=== PATIENT | female | born 1960 ===

== ENCOUNTER 2022-01-23 12:10 | Emergency (ER) | payer BC, SELFPAY ==
[2022-01-23] VITALS (7 sets, daily range): BP systolic 160–167; BP diastolic 79–93; PULSE 70–72; RESP 14; TEMP 36.8; O2SAT 97–100
--- NOTE | 2022-01-23 12:53 | ED.HA ---
HPI - Headache General Chief Complaint: Headache Stated Complaint: migraine x 2 days Time Seen by Provider: 01/23/22 12:47 History of Present Illness HPI Narrative: 61-year-old female presents to the emergency room today for complaints of a migraine headache that started 2 days ago. She has taken 2 doses of her prescription triptan medication at home today with no relief. It was not as bad on Wednesday and yesterday. The today it is less tolerable. She has a history of migraines and reports that this feels similar to previous migraines. She reports that it is bilateral frontal and occipital but feels it more on the left. She describes it as a throbbing pain. She has sensitivity to light. Denies having any nausea or vomiting. No fever or chills. She does report having some blurred vision in her right eye which she has had previously with other migraines. Related Data Allergies Allergy/AdvReac Type Severity Reaction Status Date / Time codeine Allergy Mild Rash Verified 01/23/22 12:11 Review of Systems Review of Systems: CONSTITUTIONAL: Denies fever, chills, or sweats. EYES: as per HPI ENT: Denies rhinorrhea, congestion, sore throat, or otalgia. CARDIOVASCULAR: Denies chest pain, palpitations, or edema. RESPIRATORY: Denies cough or dyspnea. GASTROINTESTINAL: Denies abdominal pain, nausea, vomiting, or diarrhea. GENITOURINARY: Denies dysuria or hematuria. SKIN: Denies rash or itching. MUSCULOSKELETAL: Denies back pain, joint pain, or myalgia. NEUROLOGIC: as per HPI PSYCHIATRIC: Denies anxiety or depression. Exam Narrative: GENERAL: Well-appearing, well-nourished, and in no acute distress. HEAD: Normocephalic, atraumatic. EYES: PERRLA and EOMI. NECK: Supple. No adenopathy or masses. No carotid bruits or JVD CHEST: Clear to auscultation. No respiratory distress. No wheezes rales or rhonchi HEART: Regular rate and rhythm. No murmur heard. Normal peripheral pulses. ABDOMEN: Soft, nontender, nondistended, normal active bowel sounds. EXTREMITIES: Normal range of motion. No edema. SKIN: Warm, dry, no rash. NEURO: No focal deficits. Alert and oriented x3. PSYCH: Normal mood and affect. Course Reevaluation(s) Reevaluation #1: Pt reports that headache is improved and feels ready to go home. Date: 01/23/22 Time: 13:45 Vital Signs Vital signs: Vital Signs Temperature 36.8 C 01/23/22 12:13 Pulse Rate 72 01/23/22 12:13 Respiratory Rate 14 01/23/22 12:13 Blood Pressure 167/93 H 01/23/22 12:13 Pulse Oximetry 100 01/23/22 12:13 Oxygen Delivery Room Air 01/23/22 12:13 Temperature 36.8 C 01/23/22 12:13 Pulse Rate 72 01/23/22 12:13 Respiratory Rate 14 01/23/22 12:13 Blood Pressure 167/93 H 01/23/22 12:13 Pulse Oximetry 100 01/23/22 12:13 Oxygen Delivery Room Air 01/23/22 12:13 MDM - Headache Differential Diagnosis Differential diagnosis: Likely migraine, tension headache, headache and sinusitis Discharge Plan Discharge Clinical Impression: Migraine Qualifiers: Migraine type: with aura Status migrainosus presence: without status migrainosus Intractability: not intractable Qualified Code(s): G43.109 - Migraine with aura, not intractable, without status migrainosus Patient Disposition: Home, Self-Care Condition: Stable Instructions: Antibiotic Form, Migraine Headache (ED) Additional Instructions: Go home and rest today. Make sure and drink plenty of oral fluids. Continue your prescribed medications as directed. Follow-up with your primary care provider in 2 to 3 days for recheck. Follow-up/Referrals: Davion,MD Iglesia [Primary Care Provider] - (in 2-3 days for recheck) Time of Disposition: 14:15
[2022-01-23] MEDS: SODIUM CHLORIDE 0.9% IV 1,000 ML 999 ML IV CONT (13:12)
[2022-01-23] MEDS: METOCLOPRAMIDE HCL INJ 10 MG/2 ML VIAL IV PUSH (13:13)
[2022-01-23] MEDS: diphenhydrAMINE HCl INJ 50 MG/ML VIAL IV PUSH (13:13)
[2022-01-23] MEDS: KETOROLAC 30 MG/ML VIAL (*BKC) IV PUSH (13:13)
== END 2022-01-23 14:32 | disposition home or self-care (01) ==
PROVIDERS: Emergency Provider Nurse Practitioner Family; PCP Internal Medicine
DX: G43.109 Migraine with aura, not intractable, without status migrainosus (principal)
CPT/HCPCS: 96361; 96374; 96375; 99284; J1200; J1885; J2765; J7030

== ENCOUNTER → 2022-03-06 07:14 | Outpatient (CLI) | payer BC, SELFPAY ==
--- NOTE | ~2022-03-06 | MR_ITS ---
EXAMINATION: MR brain/brain stem wo con DATE: 03/06/2022 07:54 INDICATION: Headache. TECHNIQUE: Magnetic resonance imaging (MRI) of the brain and brainstem was performed without intraven ous contrast. COMPARISON: Head CT 04/11/2015 FINDINGS: There is no intracranial hemorrhage, acute infarction, or abnormal intracranial mass lesion . There are scattered areas of nonspecific increased T2-weighted signal intensity in the cerebral whi te matter, which is within normal limits for the patient's age. The ventricles are normal in size. Th ere is mucosal thickening in left frontal sinus. The orbits are normal. The mastoid air cells are nor mal. IMPRESSION: 1. Normal aging brain. Reviewed, dictated and finalized at location A. IMPRESSION: 1. Normal aging brain.
--- NOTE | ~2022-03-06 | MR_ITS ---
EXAMINATION: MRA brain wo con DATE: 03/06/2022 07:46 INDICATION: Headache. TECHNIQUE: Magnetic resonance angiography (MRA) of the brain was performed without intravenous contra st with T1-weighted SPGR by the 3D hjcd-on-teazsd technique. Maximum intensity projection 3D-reconstr uctions were obtained. COMPARISON: Head CT 04/11/2015, brain MRI 03/06/2022 FINDINGS: Left vertebral artery is dominant. There is no significant stenosis of basilar artery or the posterio r cerebral arteries. The posterior communicating arteries are normal. There is no significant stenosi s of the intracranial internal carotid arteries or anterior or middle cerebral arteries. Anterior com municating artery is normal. There is no aneurysm. IMPRESSION: 1. Normal brain MRA. Reviewed, dictated and finalized at location A. IMPRESSION: 1. Normal brain MRA.
== END ==
PROVIDERS: PCP Internal Medicine; Visit Provider Internal Medicine
DX: R51.9 Headache, unspecified (principal)
CPT/HCPCS: 70544; 70551

== ENCOUNTER 2023-10-10 05:47 | Emergency (ER) | payer BC, SELFPAY ==
--- NOTE | ~2023-10-10 | CT_ITS ---
EXAMINATION: CT abdomen pelvis wo con DATE: 10/10/2023 07:24 INDICATION: Flank pain TECHNIQUE: Computed tomography (CT) of the abdomen and pelvis was performed without intravenous contr ast. The dose-length product was 737.81 mGy-cm. Automated exposure control and iterative reconstructi on technique were employed. COMPARISON: None. FINDINGS: There is dependent atelectasis. There is lingular consolidation which may represent atelect asis or less likely pneumonia. Heart size normal. No significant pleural or pericardial effusion. The re are cholecystectomy clips. There is atherosclerosis of the aorta without aneurysm. There is a 5 mm proximal left ureteral stone with moderate hydronephrosis. There is a 2 mm nonobstructing left renal stone. There is left perinephric edema. Nonobstructive bowel gas pattern. The liver, spleen, pancreas, adrenal glands and right kidney are un remarkable. Colonic diverticulosis without evidence for diverticulitis. No free air or free fluid. No significant vascular abnormality. No lymphadenopathy. 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 IMPRESSION: 1. Left proximal ureteral stone measuring 5 mm with moderate hydronephrosis. 2: Left nephrolithiasis. Reviewed, dictated and finalized at location B.
[2023-10-10 06:04] LABS: Appearance Urine Clear (Clear); Bacteria Urine None Seen /hpf; Bilirubin Urine Negative (Negative); Blood Urine 3+ (Negative); Color Urine Yellow (Yellow); Glucose Urine UA Negative (Negative); Ketones Urine Negative (Negative); Leukocyte Esterase Ur 1+ LEU/UL (Negative); Nitrate Urine Negative (Negative); Non Pathogenic Casts 0-2; Protein Urine Negative (Negative); Specific Grav Ur 1.006 (1.001-1.035); Squamous Epithelial Cell Urine Occasional /hpf (Few); Urobilinogen Urine 0.2 mg/dL (<2.0); pH Urine 5.5 (5.0-9.0)
[2023-10-10 06:07] VITALS: BP 154/89; PULSE 83; RESP 16; TEMP 36.6; O2SAT 97
[2023-10-10 06:11] LABS: Add Urine Microscopic? YES
[2023-10-10 08:15] VITALS: BP 147/102; PULSE 69; RESP 18; O2SAT 100
[2023-10-10 08:22] LABS: Basophils Absolute Auto 0.1 K/mm3 (0.0-0.1); Basophils Percent Auto 0.8 % (0.2-1.2); Eosinophils Absolute Auto 0.2 K/mm3 (0-0.3); Eosinophils Percent Auto 2.1 % (0-4.4); Hematocrit 42.3 % (37.0-47.0); Hemoglobin 13.9 g/dL (12.0-15.0); Immature Granulocyte Absolute 0.02 K/mm3 (0.00-0.031); Immature Granulocyte Percent A 0.3 % (0-0.5); Lymphocytes Absolute Auto 0.79 K/mm3 (0.9-3.2); Lymphocytes Percent Auto 10.5 % (18.3-44.2); Mean Corpuscular HGB Conc 32.9 g/dl (32-36); Mean Corpuscular Hemoglobin 30.4 pg (26-34); Mean Corpuscular Volume 92.6 fl (80-100); Mean Platelet Volume 11.2 fl (7.4-10.4); Monocytes Absolute Auto 0.8 K/mm3 (0.1-0.6); Neutrophils Absolute Auto 5.7 K/mm3 (1.3-6.7); Neutrophils Percent Auto 75.3 % (45.5-73.1); Platelet Count Result 250 k/mm3 (150-375); Red Blood Count 4.57 M/mm3 (4.2-5.4); Red Cell Distribution Width 13.5 % (11.5-14.5); White Blood Count 7.6 K/mm3 (4.5-10.0)
[2023-10-10 08:30] LABS: Anion Gap 4 mmol/L (4-12); Blood Urea Nitrogen 8 mg/dL (7-17); Calcium 9.4 mg/dL (8.4-10.2); Carbon Dioxide 25 mmol/L (22-30); Chloride 112 mmol/L (98-107); Estimated CRCL calculation 52 ml/min; Estimated Glomerular Filt Rate 56; Glucose 100 mg/dL (65-110); Potassium 4.2 mmol/L (3.4-5.0); Sodium 141 mmol/L (137-145)
--- NOTE | 2023-10-10 08:47 | ED.GENADULT ---
HPI - General Adult General Chief complaint: Urogenital-Female Stated complaint: UTI, no relief after going to Time Seen by Provider: 10/10/23 07:03 Source: patient Mode of arrival: ambulatory Limitations: no limitations History of Present Illness HPI narrative: 63-year-old otherwise healthy here with a complaint of left-sided back pain for past few days. Patient states that she went to urgent care 2 days ago was diagnosed with UTI and still continues to have pain. She denies any fever or chills. No previous history of kidney stones or kidney infections. No history of trauma. She states the pain radiates from her flank to her lower abdomen. She states that she cannot get comfortable and was unable to sleep last night because of pain. Onset (ago): week(s) (1) Location: left (Flank) Radiation: abdomen Severity: moderate Pain Consistency: constant Relieving factors: none Exacerbating factors: none Associated symptoms: denies other symptoms Related Data Allergies Allergy/AdvReac Type Severity Reaction Status Date / Time codeine Allergy Mild Rash Verified 10/10/23 06:12 Review of Systems Review of Systems: All systems reviewed & are unremarkable except as noted in HPI and below Constitutional: Constitutional: Reports no additional constitutional complaints Eyes: Eyes: Reports no additional eye complaints ENT: Reports system reviewed and no additional complaints, except as documented Cardiovascular: Cardiovascular: Reports no additional cardiovascular complaints Respiratory: Respiratory: Reports no additional respiratory complaints Gastrointestinal: Gastrointestinal: Reports as per HPI Genitourinary: Genitourinary: Reports as per HPI Musculoskeletal: Musculoskeletal: Reports as per HPI Neurologic: Reports system reviewed and no additional complaints, except as documented Exam Narrative: GENERAL: Well-appearing, well-nourished, and in no acute distress. HEAD: Normocephalic, atraumatic. EYES: PERRLA and EOMI. ENT: Nares clear, no rhinorrhea or epistaxis. Mucous membranes moist. NECK: Supple. CHEST: Clear to auscultation. No respiratory distress. HEART: Regular rate and rhythm. No murmur heard. Normal peripheral pulses. ABDOMEN: Soft, nontender, nondistended, normal active bowel sounds. EXTREMITIES: Normal range of motion. No edema. SKIN: Warm, dry, no rash. NEURO: No focal deficits. Alert and oriented x3. PSYCH: Normal mood and affect. Course Course Emergency Course: Patient stated the pain is very minimal but annoying in nature. I did inform her about the lab work, CT findings. Recommended her to take pain medication as prescribed drink plenty of fluids as tolerated. If continues to have pain follow-up with urology. Vital Signs Vital signs: Vital Signs Temperature 36.6 C 10/10/23 06:07 Pulse Rate 83 10/10/23 06:07 Respiratory Rate 16 10/10/23 06:07 Blood Pressure 154/89 H 10/10/23 06:07 Pulse Oximetry 97 10/10/23 06:07 Oxygen Delivery Room Air 10/10/23 06:07 Temperature 36.6 C 10/10/23 06:07 Pulse Rate 69 10/10/23 08:15 Respiratory Rate 18 10/10/23 08:15 Blood Pressure 147/102 H 10/10/23 08:15 Pulse Oximetry 100 10/10/23 08:15 Oxygen Delivery Room Air 10/10/23 06:07 Medical Decision Making Differential Diagnosis Differential Diagnosis: UTI, pyelonephritis, DJD of the lumbar spine, kidney stones Vital Signs Vital Signs: Vital Signs Temperature 36.6 C 10/10/23 06:07 Pulse Rate 83 10/10/23 06:07 Respiratory Rate 16 10/10/23 06:07 Blood Pressure 154/89 H 10/10/23 06:07 Pulse Oximetry 97 10/10/23 06:07 Oxygen Delivery Room Air 10/10/23 06:07 Temperature 36.6 C 10/10/23 06:07 Pulse Rate 69 10/10/23 08:15 Respiratory Rate 18 10/10/23 08:15 Blood Pressure 147/102 H 10/10/23 08:15 Pulse Oximetry 100 10/10/23 08:15 Oxygen Delivery Room Air 10/10/23 06:07 Lab Data 10/10/23 08:11
== END 2023-10-10 08:58 | disposition home or self-care (01) ==
PROVIDERS: Emergency Medicine; Emergency Provider Family Medicine; PCP Hospitalist
DX: N13.2 Hydronephrosis with renal and ureteral calculous obstruction (principal)
CPT/HCPCS: 36415; 74176; 80048; 81001; 85025; 87086; 87088; 99284

== ENCOUNTER 2023-10-11 06:52 | Day surgery (SDC) | payer BC, SELFPAY ==
[2023-10-11] VITALS (13 sets, daily range): BP systolic 110–161; BP diastolic 60–82; PULSE 82–103; RESP 14–20; TEMP 36.6–36.9; O2SAT 92–98
--- NOTE | ~2023-10-11 | CT_ITS ---
EXAMINATION: CT abdomen pelvis wo con DATE: 10/11/2023 08:44 INDICATION: Left flank pain. Nausea and vomiting. TECHNIQUE: Computed tomography (CT) of the abdomen and pelvis was performed without intravenous contr ast. Automated exposure control and iterative reconstruction technique were employed. The dose-length product was 288.79 mGy-cm. COMPARISON: CT abdomen and pelvis 10/10/2023, chest CT 03/11/2012 FINDINGS: The visualized portions of the lung bases demonstrate mild atelectasis and mild chronic int erstitial lung disease. There is a 6 mm nodule in right middle lobe. There is a 7 mm nodule in left l ower lobe. These nodules are stable from 03/11/2012, likely benign. No pleural effusion. The heart siz e is normal. No pericardial effusion. There is a small sliding hiatal hernia. The liver is normal. Th ere are changes of cholecystectomy. The spleen, pancreas, adrenal glands, and right kidney are normal . There is a 2 mm stone in left kidney. There is mild left hydronephrosis. There is a 5 mm stone in p roximal left ureter. There is diverticulosis of the colon without evidence of diverticulitis. The chrissy endix is normal. There are no dilated loops of bowel. There are no pathologically enlarged lymph node s. There is no free intraperitoneal fluid. There are chronic bilateral L5 pars defects. There is 4 mm anterolisthesis of L5 and S1. There is mild thoracic spondylosis and severe lumbar spondylosis. IMPRESSION: 1. 5 mm stone in proximal left ureter with mild left hydronephrosis. 2. 2 mm nonobstructing left kidney stone. Reviewed, dictated and finalized at location A.
--- NOTE | ~2023-10-11 | XR_ITS ---
EXAMINATION: XR retrograde pyelo w/stent LT DATE: 10/11/2023 11:41 INDICATION: Left ureteral stone. TECHNIQUE: 26 intraoperative fluoroscopic views of the abdomen and pelvis were obtained. I was not pr esent. Fluoroscopy exposure time was 19 seconds. COMPARISON: CT abdomen and pelvis 10/11/2023 FINDINGS: The left-sided retrograde pyelogram demonstrates mild hydronephrosis. The final images demo nstrate a left internal ureteral stent in expected position. Surgical clips in the right upper quadra nt are likely from cholecystectomy. IMPRESSION: 1. Mild left hydronephrosis. Left internal ureteral stent in expected position. Reviewed, dictated and finalized at location A.
--- NOTE | ~2023-10-11 | XR_ITS ---
Supine and upright views of the abdomen Clinical history: Abdominal pain Findings: Bowel gas pattern is nonspecific. No evidence for obstruction or free air. Cholecystectomy clips noted. No abnormal mass lesion or calcification is seen. Osseous structures are intact. Impression: No significant abnormality is seen. Reviewed, dictated and finalized at [facility]. Impression: No significant abnormality is seen.
[2023-10-11] MEDS: SODIUM CHLORIDE 0.9% IV 1,000 ML 999 ML IV CONT (07:46)
[2023-10-11] MEDS: ONDANSETRON INJ 4 MG/2 ML VIAL IV PUSH (07:46)
[2023-10-11] MEDS: KETOROLAC 30 MG/ML VIAL (*BKC) IV PUSH (07:47)
--- NOTE | 2023-10-11 07:47 | ED.GENADULT ---
HPI - General Adult General Chief complaint: Nausea/Vomiting/Diarrhea Stated complaint: n/v Time Seen by Provider: 10/11/23 06:53 History of Present Illness HPI narrative: Patient is a 63-year-old female who presents ER with nausea vomiting as well as left-sided flank pain. Diagnosed with kidney stone yesterday. 5 mm in size. Unable to take anything control medication outside of ibuprofen which is not helping. No fevers or chills or sweats. She thought she passed a small stone last night. Related Data Allergies Allergy/AdvReac Type Severity Reaction Status Date / Time codeine Allergy Mild Rash Verified 10/11/23 06:59 acetaminophen [From [place]] Allergy Rash Verified 10/11/23 07:16 hydrocodone [From [place]] Allergy Rash Verified 10/11/23 07:16 Review of Systems Review of Systems: All systems reviewed & are unremarkable except as noted in HPI and below Constitutional: Constitutional: Reports no additional constitutional complaints ENT: Reports system reviewed and no additional complaints, except as documented Cardiovascular: Cardiovascular: Reports no additional cardiovascular complaints Respiratory: Respiratory: Reports no additional respiratory complaints Gastrointestinal: Gastrointestinal: Denies abdominal pain, Denies diarrhea, Reports nausea and Reports vomiting Genitourinary: Genitourinary: Reports no additional female genitourinary complaints Musculoskeletal: Musculoskeletal: Reports back pain, Denies myalgias, Denies arthralgias and Denies joint swelling PMFSH Past Medical History Medical History Kidney stones Surgical History Surgical History No pertinent past surgical history Exam Narrative: GENERAL: Well-appearing, well-nourished, and in no acute distress. HEAD: Normocephalic, atraumatic. ENT: Mucous membranes moist. CHEST: Clear to auscultation. No respiratory distress. HEART: Regular rate and rhythm. Normal peripheral pulses. ABDOMEN: Soft, nontender, nondistended. EXTREMITIES: Normal range of motion. No edema. SKIN: Warm, dry, no rash. NEURO: Alert and oriented x3. PSYCH: Normal mood and affect. Course Course Emergency Course: Recurrence of pain. Stone still present. Will give fentanyl and patient has already had Toradol. Discussed with urology and patient will likely go to OR. Patient has had nothing to eat or drink today. Vital Signs Vital signs: Vital Signs Temperature 97.8 F 10/11/23 06:56 Pulse Rate 86 10/11/23 06:56 Respiratory Rate 20 10/11/23 06:56 Blood Pressure 161/80 H 10/11/23 06:56 Pulse Oximetry 97 10/11/23 06:56 Oxygen Delivery Room Air 10/11/23 06:56 Temperature 98.5 F 10/11/23 10:55 Pulse Rate 82 10/11/23 12:40 Respiratory Rate 16 10/11/23 12:40 Blood Pressure 132/69 10/11/23 12:40 Pulse Oximetry 96 10/11/23 12:10 Oxygen Delivery Room Air 10/11/23 12:40 Medical Decision Making Vital Signs Vital Signs: Vital Signs Temperature 97.8 F 10/11/23 06:56 Pulse Rate 86 10/11/23 06:56 Respiratory Rate 20 10/11/23 06:56 Blood Pressure 161/80 H 10/11/23 06:56 Pulse Oximetry 97 10/11/23 06:56 Oxygen Delivery Room Air 10/11/23 06:56 Temperature 98.5 F 10/11/23 10:55 Pulse Rate 82 10/11/23 12:40 Respiratory Rate 16 10/11/23 12:40 Blood Pressure 132/69 10/11/23 12:40 Pulse Oximetry 96 10/11/23 12:10 Oxygen Delivery Room Air 10/11/23 12:40 Imaging Data Radiologist's impression: ITS Impressions Abdomen X-Ray 10/11/23 08:01 Impression: No significant abnormality is seen. Abdomen/Pelvis CT 10/11/23 08:45 IMPRESSION: 1. 5 mm stone in proximal left ureter with mild left hydronephrosis. 2. 2 mm nonobstructing left kidney stone. Retrograde Pyelogram 10/11/23 12:48 IMPRESSION: 1. Mild left hydronephrosis. Left internal ureteral
[2023-10-11] MEDS: fentaNYL CITRATE INJ (*CRX) 100 MCG/2 ML VIAL 50 MCG IV PUSH (09:14)
--- NOTE | 2023-10-11 09:41 | WPDURCON ---
Assessment and Plan Assessment and plan (1) Left ureteral stone: Code(s): N20.1 - Calculus of ureter Status: Acute Assessment and Plan: 5 mm proximal left ureteral stone with mild left hydro noted on CT. Patient has failed outpatient management with Flomax analgesics. She has persistent pain and intractable nausea, therefore will proceed with cystoscopy and left ureteral stent placement this afternoon by Dr. Keyes. Discussed details of procedure including risks and benefits and she is agreeable to proceed. Discussed need for definitive stone treatment at a later date. (2) Abnormal urinalysis: Code(s): R82.90 - Unspecified abnormal findings in urine Status: Acute Assessment and Plan: Urine culture is pending. Patient has been taking Macrobid for 3 days, given at urgent care. Urology Consult Note HPI Date Seen: 10/11/23 Primary Care Provider: Chaka Jain, Consult Narrative Narrative: Prisca Gusman is a 63 year old female with no prior urologic history who is being seen in consultation for evaluation of left ureteral stone. Her symptoms started about 4 days ago. She went to urgent care and was informed she had a UTI and started on Macrobid. She had no improvement with this and so presented to the emergency department on 10/10/2023 with complaints of left back and flank pain for several days. At that time, her vitals were stable, WBC 7.6, creatinine 1.0, UA with leukocytes and blood. A urine culture was collected and is pending at this time. A CT scan was completed which showed a left proximal ureteral stone measuring 5 mm with moderate hydronephrosis as well as a small nonobstructing left renal stone. She was discharged with a course of Flomax and analgesics. Unfortunately, her pain was not controlled with this medication and she returned to the emergency room this morning with persistent left flank pain and intractable nausea. She was unable to take the [place] due to allergy and had been taking ibuprofen without any relief. Upon arrival to the emergency room today, her vital signs were stable and she was afebrile. A KUB was completed without stone visible. A repeat CT scan demonstrated persistent 5 mm left proximal ureteral stone with mild left hydroAt the time of my evaluation, the patient reports it is 7-8/10 left lower back and flank pain not improved with dose of fentanyl as well as persistent nausea despite Zofran. Given her persistent pain and intractable nausea, will proceed with cystoscopy and left ureteral stent placement today and will plan for discharge following this procedure. Discussed with the patient the risks and benefits and she is agreeable to proceed. Review of Systems Review of Systems: All systems reviewed & are unremarkable except as noted in HPI and below PMFSH Past Medical History Medical History Kidney stones Surgical History Surgical History (Updated 10/11/23 @ 07:50 by Ciro Zapien MD) No pertinent past surgical history Meds Home Medications and Allergies Home Medications Medication Instructions Recorded Confirmed Type hydrocodone 5 mg-acetaminophen 325 1 tablet PO Q8H PRN pain #14 tabs 10/10/23 Rx mg tablet tamsulosin 0.4 mg capsule (Flomax) 0.4 mg PO HS #10 caps 10/10/23 Rx Allergies Allergy/AdvReac Type Severity Reaction Status Date / Time codeine Allergy Mild Rash Verified 10/11/23 06:59 acetaminophen [From [place]] Allergy Rash Verified 10/11/23 07:16 hydrocodone [From [place]] Allergy Rash Verified 10/11/23 07:16 Vital Signs Vital Signs - 24 hr 10/11/23 06:56 10/11/23 08:20 10/11/23 09:13 Temperature 97.8 F Pulse Rate 86 82 88 Respiratory Rate 20 16 18 Blood Pressure 161/80 H 160/82 H 119/76 Pulse Oximetry 97 98 96 Oxygen Delivery Room Air Exam Narrative: General: Awake, alert, comfortable, no acute distress HEENT: Normocep
--- NOTE | 2023-10-11 10:53 | P.PNAN_ITS ---
Anes - Initial Pre Proc Eval Procedure: Operation Date: 10/11/23 15:15 Proposed Procedures p Cystoscopy,Left Stent Placement - Eulogio Keyes MD Date/Time: 10/11/23 10:53 Surgeon: Eulogio Keyes MD Pre Op Diagnosis: n/v Patient Data Age: 63 Gender: F Height: 1.63 m Weight: 80 kg Last Vital Signs Temp 36.6 C 10/11/23 06:56 Pulse 97 10/11/23 10:15 Resp 16 10/11/23 10:15 BP 119/76 10/11/23 10:15 Pulse Ox 98 10/11/23 10:15 O2 Del Method Room Air 10/11/23 06:56 Allergies Allergy/AdvReac Type Severity Reaction Status Date / Time codeine Allergy Mild Rash Verified 10/11/23 06:59 acetaminophen [From [place]] Allergy Rash Verified 10/11/23 07:16 hydrocodone [From [place]] Allergy Rash Verified 10/11/23 07:16 Home Medications Medication Instructions Recorded Confirmed Type tamsulosin 0.4 mg capsule (Flomax) 0.4 mg PO HS #10 caps 10/10/23 Rx Patient hx anesthesia problems: none Family hx anesthesia problems: none Results Review: All pre-operative results and documents have been reviewed as part of the pre- operative evaluation. [facility] Past Medical History Medical History Kidney stones Surgical History Surgical History No pertinent past surgical history Anes - Eval Final PreProcedure Day of Procedure 10/11/23 10:53 Patient weight: overweight Heart: regular rate and rhythm Lungs: clear to auscultation Airway: Mallampati scale class II Neurological: alert and oriented Last oral intake: >/= 8 hours ASA classification: II Emergent: yes Anesthetic plan: proceed Anesthesia type and monitoring: general LMA and standard monitoring Results Review: All pre-operative results and documents have been reviewed as part of the pre- operative evaluation. Informed Consent: The patient's anesthetic plan and its attendant risks and benefits were discussed with the patient/family/POA. Questions were solicited and answers provided to the satisfaction of the patient/family/POA.
[2023-10-11] MEDS: LACTATED RINGERS 1,000 ML 30 ML IV CONT (10:56)
--- NOTE | 2023-10-11 11:12 | WPDHPUPDATE1 ---
History and Physical Update Update Date/Time: 10/11/23 11:12 History and Physical has been reviewed, including an updated exam of the patient. There are NO changes in the patient's condition. Risks, benefits, and alternatives have been discussed and questions answered. Patient agrees to proceed with procedure.
--- NOTE | 2023-10-11 11:37 | W.PM.PROC2 ---
Procedure Note - Detailed Date of Procedure 10/11/23 Pre-op Diagnosis Left ureteral stone Post-op Diagnosis Same Procedure Performed cystoscopy, left retrograde pyelogram, left ureteral stent placement Surgeon Eulogio Keyes MD Anesthesia MAC and Local Indications this is a woman with a proximal left ureteral stone. She has failed outpatient management. We will place a stent today. Definitive outpatient procedure to follow. She understands risks of bleeding, infection, damage to the urinary tract, inability to place stent. She agrees to proceed Findings uncomplicated stent placement. Stone is visible on KUB Description of Procedure she was correctly identified. Informed consent obtained. She had from the operating room. She was given monitored anesthesia care. Uro jet was applied. She was prepped draped sterile fashion. Time-out performed. Cystoscopy revealed normal-appearing bladder without abnormalities. No tumors or stones. No abnormal red patches. I could see the left ureteral stone on information technology program manager radiograph. I placed a guidewire to the kidney. I performed a retrograde pyelogram. It revealed a filling defect with hydronephrosis proximal to the stone. There was no extravasation. I replaced the guidewire to the upper pole. A 4.8 variable length stent was placed. Proximal coil in the renal pelvis. Distal coil the bladder. The bladder was drained. She was awakened transferred to PACU in stable condition. Implants 4.8 variable length stent Estimated Blood Loss 0 Drains Yes ( ureteral stent) Packing No Pathology None sent Complications No immediate complications Condition Stable
[2023-10-11] MEDS: LIDOCAINE HCL 2% GEL UROJET 10 ML PKG MUCOUS MEM (11:41)
== END 2023-10-11 12:53 | disposition home or self-care (01) ==
LOC: ANHED 09:32 → ANHSURGERY 10:30
PROVIDERS: Emergency Provider Emergency Medicine; PCP Hospitalist; Visit Provider Urology
PROC: (CPT 52352; principal; 2023-10-11 15:15)
DX: N13.2 Hydronephrosis with renal and ureteral calculous obstruction (principal)
CPT/HCPCS: 52332; 74018; 74176; 74420; 96361; 96374; 96375; 99285; C1758; C1769; C2617; J1100; J1885; J2250; J2405; J2704; J3010; J7030; J7120; Q9966

== ENCOUNTER 2023-10-20 08:21 | Outpatient (CLI) | payer BC, SELFPAY | END 2023-10-20 08:22 | disposition home or self-care (01) | LOC: ANHSURGERY 08:26 | PROVIDERS: PCP Hospitalist; Visit Provider Urology | DX: N20.1 Calculus of ureter (principal); Z01.818 Encounter for other preprocedural examination | CPT/HCPCS: 87086; 87088 ==

== ENCOUNTER 2023-10-26 00:40 | Day surgery (SDC) | payer BC, SELFPAY ==
[2023-10-15 10:05] VITALS: BMI 30.2
--- NOTE | 2023-10-15 10:33 | PC.NURSE ---
Report to the Outpatient Waiting Room, entrance under the green pavilion located off [facility], at time __10:30AM on date __10/26/23 . Planned Procedure Time: __12:30PM . Time changes happen often and if your time is changed the preop area will call you the afternoon before. - You and your visitor will be asked to self-screen and do not enter if you have any COVID symptoms. - A mask is optional within the hospital at this time. Patients may have clear liquids (water, carbonated beverages, clear teas, apple juice) until 3 hours prior to surgery with a maximum of 20 ounces. - No food from midnight until time of surgery. Take the following medications with a SIP of water the morning of surgery: ____TOPIRAMATE. MAY TAKE TRAMADOL NEEDED FOR PAIN. DO NOT STOP ANY OF YOUR OTHER PRESCRIPTION MEDICATIONS PRIOR TO SURGERY ?EXCEPT THE FOLLOWING Medications to discontinue per physician NONE Date to take last dose Please no make-up, nail croatian, hairspray, perfume, deodorant, or body powder the day of surgery. No jewelry (including any body piercings) or valuables the day of surgery, leave them at home. Please take a shower or bath the night before, or the morning of, surgery with an antibacterial soap. Wear comfortable, loose fitting clothing. - Jewelry must be removed prior to entering the operating room. Rings and piercings that are not removed may be cut off. - The hospital will not accept responsibility for valuables. - Please leave all valuables, including medications, at home the day of surgery. If you are going home after surgery, a licensed haul driver must drive you home. - NO public transportation without another adult if you receive anesthesia. - We recommend that an adult stay with you for 24 hours following discharge. - We also recommend that you do not drive, make important decision, drink alcoholic beverages, or take any drugs that were not prescribed by your health care provider for at least 24 hours after your discharge time. Follow any additional instructions given to you from your surgeon. If you or anyone in your household have experienced Covid symptoms in the past week, please notify your surgeon or the nurse liaison at the phone number below for possible testing. Telephone instructions given to ____PATIENT and asked if any additional questions and then verbalized understanding. Patient advised to call surgeon office or pre surgery nurse liaison [phone] if any additional questions.
[2023-10-26] VITALS (7 sets, daily range): BP systolic 126–174; BP diastolic 75–88; PULSE 56–82; RESP 14–18; TEMP 36.6; O2SAT 98–100
--- NOTE | ~2023-10-26 | XR_ITS ---
EXAMINATION: XR retrograde pyelo w/stent LT DATE: 10/26/2023 12:50 CDT INDICATION: LEFT RETRO/STENT . TECHNIQUE: 3 fluoroscopic images of the abdomen were obtained during left retrograde pyelography with stent placement, performed by Evangelista Aburto MD. I was not present during the procedure. Flu oroscopy exposure time was 8.3 seconds. Air Kerma 3.48 mGy. DAP [id number] mGym2. COMPARISON: 10/11/2023 FINDINGS/IMPRESSION: Fluoroscopic documentation of left retrograde pyelography with stent placement. Please refer to the o perative note for complete procedural details . Reviewed, dictated and finalized at location K.
--- NOTE | 2023-10-26 10:53 | WPDHPUPDATE1 ---
History and Physical Update Update Date/Time: 10/26/23 10:53 History and Physical has been reviewed, including an updated exam of the patient. There are NO changes in the patient's condition. Risks, benefits, and alternatives have been discussed and questions answered. Patient agrees to proceed with procedure. Proceed with cystoscopy, left ureteroscopy, left stone extraction, possible RPG, laser, stent exchange.
--- NOTE | 2023-10-26 11:05 | P.PNAN_ITS ---
Anes - Initial Pre Proc Eval Procedure: Operation Date: 10/26/23 12:30 Proposed Procedures p Cystoscopy, Left Ureteroscopy, Left Stone Extraction, Possible Left Retrograde Pyelogram, Possible Left Stent Removal/Placement, Possible Holmium Laser - Evangelista Aburto MD Date/Time: 10/26/23 11:05 Surgeon: Evangelista Aburto MD Pre Op Diagnosis: Left ureteral stone Patient Data Age: 63 Gender: F Height: 1.63 m Weight: 80 kg Allergies Allergy/AdvReac Type Severity Reaction Status Date / Time codeine Allergy Mild Rash Verified 10/15/23 09:59 hydrocodone [From [place]] Allergy Rash Verified 10/15/23 09:59 Home Medications Medication Instructions Recorded Confirmed Type oxybutynin chloride 5 mg tablet 5 mg PO TID PRN Abdominal 10/11/23 10/15/23 Rx Discomfort #40 tabs phenazopyridine 200 mg tablet 200 mg PO TID PRN pain 6 doses #30 10/11/2310/14 Rx (Pyridium) tabs tramadol 50 mg tablet 50 mg PO Q6H PRN pain #25 tabs 10/11/23 10/15/23 Rx azelastine 137 mcg (0.1 %) nasal 1 spray intranasal BID PRN 10/15/23 10/15/23 History spray aerosol Congestion cetirizine 10 mg tablet 10 mg PO QAM 10/15/23 10/15/23 History nitrofurantoin 100 mg PO BID 10/15/23 10/15/23 History monohydrate/macrocrystals 100 mg capsule topiramate 50 mg tablet 50 mg PO BID 10/15/23 10/15/23 History Patient hx anesthesia problems: none Family hx anesthesia problems: none Results Review: All pre-operative results and documents have been reviewed as part of the pre- operative evaluation. [facility] Past Medical History Medical History Kidney stones Surgical History Surgical History No pertinent past surgical history Social History Social History Smoking packs per day: 0.02 Smoking cigarettes per day: 0.4 Years smoked: 3 Smoking pack-years: 0.06 Smoking status: Former smoker Tobacco type: cigarettes Smoking end date: 11/07/81 Alcohol intake: current Drinks per week: 6 Living arrangements: with family Additional living arrangements comments: [facility] Spiritual care concerns: No Anes - Eval Final PreProcedure Day of Procedure 10/26/23 11:05 Patient weight: obese Heart: regular rate and rhythm Lungs: clear to auscultation Airway: Mallampati scale and special considerations (Many upper caps, missing post teeth on the lower aspect. ) Neurological: alert and oriented Last oral intake: >/= 8 hours ASA classification: II Emergent: no Anesthetic plan: proceed Anesthesia type and monitoring: general LMA and standard monitoring Results Review: All pre-operative results and documents have been reviewed as part of the pre- operative evaluation. Informed Consent: The patient's anesthetic plan and its attendant risks and benefits were discussed with the patient/family/POA. Questions were solicited and answers pr ovided to the satisfaction of the patient/family/POA.
[2023-10-26] MEDS: LACTATED RINGERS 1,000 ML 30 ML IV CONT ×2 (12:00→13:26)
[2023-10-26] MEDS: ceFAZolin 2 GM/D5W 50 ML 2 GM/50 ML BAG IVPB (12:44)
[2023-10-26] MEDS: LIDOCAINE HCL 2% GEL UROJET 10 ML PKG MUCOUS MEM (12:52)
--- NOTE | 2023-10-26 13:23 | W.PM.PROC2 ---
Procedure Note - Detailed Date of Procedure 10/26/23 Pre-op Diagnosis Left ureteral stone Post-op Diagnosis Same Procedure Performed Cystoscopy, left retrograde pyelogram, left ureteroscopy with holmium laser, stone extraction, left stent exchange 4.8 [place] contour Surgeon Evangelista Aburto MD Anesthesia General Description of Procedure Patient is taken to the operative suite correctly identified. Once anesthesia was obtained she was placed in a dorsal lithotomy position and prepped and draped usual sterile fashion. Nineteen Bhutanese scope was inserted the bladder. The prior stent was grasped and brought out the meatus. Sensor wire was passed through it. Mini flexible ureteral scope was then inserted. The stone that was in the proximal ureter had been pushed it into the kidney. Using an escape basket I was too large to retrieve 1 piece. I then used 200 micron fiber to fragment the stone. The largest pieces were retrieved and sent for analysis. Reinspection revealed no significant stone burden. Pyelogram was performed to confirm placement of the stent. 4.8 [place] contour stent was then placed with the proximal end coiled in the renal pelvis and the distal in the bladder. 2% viscous lidocaine was inserted into the urethra patient is taken recovery stable condition. She will follow-up in a week's time for stent removals to call for that appointment. This completes dictation. Please send a copy of op note to my office. Estimated Blood Loss 0 Drains Yes Packing No Pathology Yes Complications No immediate complications Condition Stable Disposition PACU
[2023-10-26] MEDS: traMADol HCL (*CRX) 50 MG TABLET PO (14:20)
== END 2023-10-26 15:18 | disposition home or self-care (01) ==
PROVIDERS: PCP Hospitalist; Visit Provider Urology
PROC: (CPT 52352; principal; 2023-10-26 12:30)
DX: N20.1 Calculus of ureter (principal); Z87.891 Personal history of nicotine dependence; E66.9 Obesity, unspecified; Z68.29 Body mass index [BMI] 29.0-29.9, adult
CPT/HCPCS: 52356; 74420; 82365; 88300; A9270; C1758; C1769; C2617; J0690; J1100; J2250; J2405; J2704; J3010; J7120; Q9966